=== PATIENT | male | born 1965 | race Caucasian/White ===

== ENCOUNTER 2025-02-10 08:27 | Outpatient (OUT) | payer BC, SELFPAY ==
--- OUTSIDE RECORDS SUMMARY | 2025-02-09 04:00 | XMS_ITS ---
Author Organization 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 No Xpzfqh9QoodxsslzsmwgvBgrapoom Problems Problem Type SNOMED Code ICD Code Onset Dates Problem Status W/U Status Risk Notes Problem COPD - Chronic obstr uctive pulmonary disease (33595290) COPD (chronic obstructive pulmonary disease) (J44.9) ActiveconfirmedProblemUrinary frequency (015782703)Urinary frequency (R35.0) ActiveconfirmedProblemElevated blood pressure reading without diagnosis of hypertension (637084413)Borderline hypertension (R03.0)Activeconfirmed Vital Signs Weight 227.4 lbs 02/09/2025 Height 67.5 in 02/09/2025 Blood pressure systolic 160 mm Hg 02/10/20 25 Blood pressure diastolic 98 mm Hg 025 BMI 35.09 kg/m2 02/09/2025 Encounters Encounter Location Date Provider Diagnosis [facility] [address] [place] [address] 02/09/2025 Gustavo Hoy Borderline hypertens ion R03.0 [...] Name Sig Start Date Stop Date Notes Trelegy Ellipta 100-62.5-25 MCG/ACT 1 puff Inhalation Once a day 02/09/2025 Cardura 2 MG1 tablet Orally Once a day; Duration: 30 day(s)02/09/2025Treatment Notes Assessment Notes Borderline hypertension follow up next w [place] for BP check Pending Test Test Name Order Date HEMOGLOBIN A1C (GLYCO) 02/09/2025 INSULIN, TOTAL 02/09/2025 LIPID PANEL (CHOL/TRIG/HDL/LDL) 02/10/20 25 UA DIP NONAUTO WO MICRO (21973) - IN OFF ICE 02/09/2025 STOOL OCCULT BLOOD 02/09/2025 THYROID PANEL (T4/TSH/FREE T3) PSA, SCREENING 02/09/2025 CT CHEST LOW DOSE (LDCT) 02/09/2025 CMP (COMP MET MENDEZ) w/eGFR CKD-EPI 2024 CBC WITH DIFF 02/09/2025 Progress Notes * Jaime JHADOB:1965 (59 yo M)Acc No.[id number]:02/09/2025 New Patient Patient: Jaime HAAS :?Wesley Avendano ([facility]), MDDOB:1965???Age: 59 Y???Sex:MaleDate:02/09/2025Phone:[phone]:[address] [place], [place] [address]-[id number] In:08:50 AM ESTCheck Out:09:30 AM EST Subjective: [...] (chronic obstru ctive pulmonary disease) Modified On:02/09/2025/U Status:uhqqeziiyX99.0Urinary frequency Modified On:02/09/2025U Status:kqvxxgbfzC64.0Borderline hypertension Modified On:02/09/2025 Status:confirmed * Medical History: [...] a day, 30 day(s), 30.?LAB: UA [place] CRUZO WO MICRO (74817) - IN OFFICE (Collection Date & Time [...] L ab: UA DIP NONAUTO WO MICRO (70914) - IN OFFICE (Collection Date & Time [...] (Check Out) true * Provider: Román Avendano ([facility])MD Date: 1 04/11/2024 Generated for Printing/Faxing/eTransmitting on:?02/10/2025 08:33 AM EST History and Physical Notes * HPI [...]
--- OUTSIDE RECORDS SUMMARY | 2025-02-10 08:33 | XMS_ITS | Clinical Summary ---
Author Organization [facility] Address [id number] [address] [place] [address] Care Team Providers Care Beer Cooler Name Role Phone Unavailable Primary Care Provider Unavailabl e Allergies No known active allergies Social History Tobacco UseTypesPacks/DayYears UsedDateSmoking Tobacco: Never AssessedChildcare AnswerDate EqskrxwqRgptmcnqhArpjnau71/12/2019EmploymentAnswerDate Recorded GcdylstjibSkitkxo15/12/2019Purpose - LifeAnswerDate RecordedPurpose and direction in duzcCxogvnk90/11/2021ex and Gender InformationValueDate Recorded Sex Assigned at BirthNot on fileLegal LzlCpeu9311/02/2014 11:27 AM EDTGender IdentityNot on fileSexual OrientationNot on file Plan of Treatment Health MaintenanceDue DateLast DoneCommentsDepression Rnvmnzylc41/12/1979Tobacco Lndpmcaut41/12/1979Adult BMI Aaqsfojvk87/12/1985DTaP,Tdap and Td Vaccines (1 - Tdap)1985Zoster (Shingles) Vaccine (1 of 2)2016Influenza Vaccine 11/28/2024 Medical Devices Not on file
--- OUTSIDE RECORDS SUMMARY | 2025-02-10 08:33 | XMS_ITS | Patient Health Record ---
Author Organization [facility] in [place] Address [address] [place] [address] Care Team Providers Care Thrill Performer Name Role Phone Gustavo Avendano Primary Care Provider [phone] Allergies No Known Allergies Results Component Value Reference Range Notes UA DIP NONAUTO WO MICRO (810 02) - IN OFFICE (Not yet reviewed by provider) Interpretation: Performing Lab: Notes/Report: COLOR dark yellow CLARITYclearGLUCOSENEGBILIRUBINNEGKETONENEGSPECIFIC GRAVITY1.652UMCKBMMOPG1.0 PROTEINPOSUROBILINOGENNEGNITRITENEGLEUKOCYTE ESTERASENEG Reason For Referral No Information Medications Medication SIG (Take, Route, Frequency, Duration) [...] alcohol in the p ast year? No Gmzngj4SrkphjsxzprvucAkorikid Problems Problem Type SNOMED Code ICD Code Onset Dates Problem Status W/U Status Risk Notes Problem COPD - Chronic obstr uctive pulmonary disease (93904088) COPD (chronic obstructive pulmonary disease) (J44.9) ActiveconfirmedProblemUrinary frequency (314999917)Urinary frequency (R35.0) ActiveconfirmedProblemElevated blood pressure reading without diagnosis of hypertension (175647422)Borderline hypertension (R03.0)Activeconfirmed Vital Signs Blood pressure diastolic 98 mm Hg 02/09/2025 Eswtit64.5 in02/09/2025lood pressure vlcqkivy593 mm Hg02/09/20258846Vabxme398.4 lbs 02/09/2025BMI35.09 kg/m202/09/2025 Encounters Encounter Location Date Provider Diagnosis [facility] [address] [place] [address] 02/09/2025 Gustavo Avendano Borderline hypertens ion R03.0 ; COPD (chronic [...] adult (ICD-10 - Z00.00) Plan Of Treatment Pending Test Test Name Order Date HEMOGLOBIN A1C (GLYCO) 02/09/2025 INSULIN, TOTAL 02/09/2025 LIPID PANEL (CHOL/TRIG/HDL/LDL) 02/10/20 25 UA DIP NONAUTO WO MICRO (94414) - IN OFF ICE 02/09/2025 STOOL OCCULT BLOOD 02/09/2025 THYROID PANEL (T4/TSH/FREE T3) 5 PSA, SCREENING 02/09/2025 CT CHEST LOW DOSE (LDCT) 02/09/2025 CMP (COMP MET MENDEZ) w/eGFR CKD-EPI 2024 CBC WITH DIFF 02/09/2025 Insurance Providers Payer Name Payer Address Payer Phone Subscriber Number Group Number Insured Name Patient Relationship to Insured Coverage Start Date Coverage End Date [employer] [address] [place] [address] [id number] Natividad Greer - patient is the insured Medical (General) History Surgical History Surgery Date(Month/Year) Testicle surgery Nose Surgery
[2025-02-10 08:58] LABS: Hematocrit 46.5 % (42.0-54.0); Hemoglobin 15.9 g/dL (14.0-18.0); Immature Granulocytes Abs Auto 0.04 10^3/uL (0.00-0.03); Immature Granulocytes Pct Auto 0.3 % (0.0-0.5); Lymphocytes Absolute Auto 2.4 10^3/uL (1.2-3.8); Mean Corpuscular HGB Conc 34.2 g/dL (29.9-35.2); Mean Corpuscular Hemoglobin 30.8 pg (25.9-34.0); Mean Corpuscular Volume 89.9 fL (80.0-94.0); Platelet Count 399 10^3/uL (150-450); Red Blood Count 5.17 10^6/uL (4.70-6.10); White Blood Count 12.4 10^3/uL (4.0-11.0)
[2025-02-10 09:39] LABS: Alanine Aminotransferase 26 U/L (16-63); Albumin Globulin Ratio 1.1; Albumin Level 4.0 g/dL (3.4-5.0); Alkaline Phosphatase 73 U/L (46-116); Anion Gap 14.5; Aspartate Amino Transferase 15 U/L (15-37); Blood Urea Nitrogen 19.0 mg/dL (7.0-18.0); Calcium 8.7 mg/dL (8.5-10.1); Carbon Dioxide 25.7 mmol/L (21.0-32.0); Chloride 104 mmol/L (98-107); Cholesterol 236 mg/dL (<=200); Estimated GFR (African America >60 (>=60 mL/min/1.73m^2); Estimated GFR (Non-African Ame >60 (>=60 mL/min/1.73m^2); Free T3 2.71 pg/mL (2.18-3.98); Globulin 3.5 g/dL; Glucose 96 mg/dL (74-106); HDL Cholesterol 38 mg/dL (40-60); Potassium 4.2 mmol/L (3.5-5.1); Sodium 140 mmol/L (136-145); Thyroid Stimulating Hormone 0.770 uIU/mL (0.358-3.740); Total Protein 7.5 g/dL (6.4-8.2); Triglycerides 137 mg/dL (<=150); VLDL CHOLESTEROL 27.4 mg/dL
== END 2025-02-10 08:28 | disposition home or self-care (01) ==
PROVIDERS: Family Provider Emergency Medicine Hospice and Palliative Medicine; PCP Family Medicine; Visit Provider Family Medicine
DX: Z00.00 Encounter for general adult medical examination without abnormal findings (principal); Z12.5 Encounter for screening for malignant neoplasm of prostate
CPT/HCPCS: 36415; 80053; 80061; 83036; 83525; 84436; 84443; 84481; 85025; G0103

== ENCOUNTER 2025-02-11 17:44 | Outpatient (REF) | payer BC, SELFPAY ==
--- OUTSIDE RECORDS SUMMARY | 2025-02-09 04:00 | XMS_ITS ---
Author Organization 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 Medications Medication SIG (Take, Route, Frequency, Duration) Notes Start Date End Date Status Trelegy Ellipta 100-62.5-25 MCG/ACT 1 puff Inhal ation Once a day 5ActiveCardura 2 MG1 tablet Orally Once a day; Duration: 30 day(s) 5Active Social History Tobacco Use: Social History Observation Description Date Details (start date - stop date) Current Smoker 01/28/1978 - NA Tobacco Control (Standard) Question Answer Notes Tobacco use: Current smoker When did you start smoking?01/28/1978How often do you smoke cigarettes?Every day How many cigarettes a day do you smoke?31 or moreHow soon after you wake up do you smoke your first cigarette?Within 5 minutesAre you interested in quitting? Not ready to quitAUDIT-C (Standard) Question Answer Notes Did you have a drink containing alcohol in the p ast year? No Sdnami1EtzctczyqyhuejEkdezfzj Problems Problem Type SNOMED Code ICD Code Onset Dates Problem Status W/U Status Risk Notes Problem COPD - Chronic obstr uctive pulmonary disease (02438625) COPD (chronic obstructive pulmonary disease) (J44.9) ActiveconfirmedProblemUrinary frequency (777447866)Urinary frequency (R35.0) ActiveconfirmedProblemElevated blood pressure reading without diagnosis of hypertension (696599818)Borderline hypertension (R03.0)Activeconfirmed Vital Signs Weight 227.4 lbs 02/09/2025 Height 67.5 in 02/09/2025 Blood pressure systolic 160 mm Hg 02/10/20 25 Blood pressure diastolic 98 mm Hg 025 BMI 35.09 kg/m2 02/09/2025 Encounters Encounter Location Date Provider Diagnosis [facility] [address] [place] [address] 02/09/2025 Gustavo Hoy Borderline hypertens ion R03.0 ; COPD (chronic obstructive pulmonary disease) J44.9 ; Urinary frequency R35.0 and Well adult Z00.00 Assessments Encounter Date Diagnosis (ICD Code) Assessment Notes Treatment Notes Treatment Clinical Notes Section Notes 02/09/2025 Borderline hypertension (ICD-10 - R03.0) follow up next week for BP check02/09/2025OPD (chronic obstructive pulmonary disease) (ICD-10 - J44.9)02/09/2025Urinary frequency (ICD-10 - R35.0)02/09/2025 Well adult (ICD-10 - Z00.00) Plan Of Treatment Medication Medication Name Sig Start Date Stop Date Notes Treledelbert Ellipta 100-62.5-25 MCG/ACT 1 puff Inhalation Once a day 02/09/2025 Cardura 2 MG1 tablet Orally Once a day; Duration: 30 day(s)02/09/2025Treatment Notes Assessment Notes Borderline hypertension follow up next w [place] for BP check Pending Test Test Name Order Date HEMOGLOBIN A1C (GLYCO) 02/09/2025 INSULIN, TOTAL 02/09/2025 LIPID PANEL (CHOL/TRIG/HDL/LDL) 02/10/20 25 STOOL OCCULT BLOOD 02/09/2025 THYROID PANEL (T4/TSH/FREE T3) PSA, SCREENING 02/09/2025 CT CHEST LOW DOSE (LDCT) 02/09/2025 CMP (COMP MET MENDEZ) w/eGFR CKD-EPI 2024 CBC WITH DIFF 02/09/2025 Progress Notes * Jaime JHADOB:1965 (59 yo M)Acc No.[id number]:02/09/2025 New Patient Patient: Jaime HAAS :?Wesley Avendano ([facility]), MDDOB:1965???Age: 59 Y???Sex:MaleDate:02/09/2025Phone:[phone]:[address] [place], [place] [id number] In:08:50 AM ESTCheck Out:09:30 AM EST Subjective: * Chief Complaints: * N P to EST-hasn't had PCP in about 30 years * HPI: ???General:?has dental issues Borderline HTN Freqent ureination - getting up 4-5 times a night. ???Depression Screening:?PHQ-2 (2015 Edition)?Little interest or pleasure in doing things? Not at all ?Feeling down, depressed, or hopeless??Not at all ?Total Score?0 * ROS: ???EENT:?hearing changes?denies.?visual changes?denies. non-healing mouth sores?denies.?swollen glands or neck lumps?denies.?hoarseness?denies.?sore throat?denies.?difficulty swallowing?denies.?nose bleeds?denies.?nasal congestion?denies.?ear ache?denies.?ear discharge denies.?ringing in ears?denies.?light sensitivity?denies.?eye pain?denies.?blurring?denies.?eye irritation?denies.?double vision?denies. vision loss?denies.?General/Constitutional:?Sweats:?Denies.?Fatigue?denies.?Sleep proble ms?denies.?Anorexia?denies.?Malaise?denies.?Weight loss?denies. Fatigue or Weakness?denies.?Fever or Chills?denies.?Cardiovascular:?Shortness of Breath w/lying flat?denies.?Lightheadedne ss/dizziness?denies.?Chest tightness/ heavy pressure?denies.?Swelling of legs, a nkles, or feet?denies.?Waking up with shortness of breath?denies.?Chest pain&#16 0;denies.?Palpitations?denies.?Weight gain?denies.?Respiratory:?Chronic or frequent cough?denies.?Coughing up blood&#1 60;denies.?Difficulty breathing?denies.?Productive cough?denies.?Snoring&#1 60;denies.?Shortness of breath that awakens from sleep (PND)?denies.?Chest pain? denies.?Sputum production?denies.?Wheezing?denies.?Musculoskeletal:?Joint pain?denies.?Joint Fluid?denies.?Backpain?denies.?Knee pain?denies.?Neck pain?denies.?Joint Stiffness?denies.?Muscle cramps?denies.?Weakness of muscles?denies.?Arthritis?denies.?Muscle aches?denies.?Pain in shoulder(s)?denies.?Swollen joints?denies.? * Active Problem List J44.9 COPD (chronic obstru ctive pulmonary disease) Modified On:02/09/2025/U Status:ywxcwxffcB43.0Urinary frequency Modified On:02/09/2025U Status:wcgarknliS09.0Borderline hypertension Modified On:02/09/2025 Status:confirmed * Medical History: * Surgical History: N ose Surgery Testicle surgery * Hospitalization/Major Diagno stic Procedure: D enies Past Hospitalization * Family History: F ather: . M other: . * Social History: ???Tobacco Use:?Tobacco Control (Standard)?Tobacco use:?Current smoker ?When did you start smoking??01/28/1978 ?How often do you smoke cigarettes??Every day ?How many cigarettes a day do you smoke??31 or more ?How soon after you wake up do you smoke your first cigarette??Within 5 minutes ?Are you interested in quitting??Not ready to quit ???Drug/Alcohol:?AUDIT-C (Standard)?Did you have a drink containing alcohol in the past year??No ?Points?0 ?Interpretation?Negative * Medications: N one * Allergies: N .K.D.A.no[Allergies Verified] Objective: * Vitals: W t:227.4lbs, Ht: 67.5 in, BP:160/98mm Hg, BMI:35.09Index, Ht-cm: 171.45 cm, Wt- k.15 kg. * Examination: ???Physical Exam: ?GENERAL:?well developed, well nourished, in no acute distress.?HEAD:?normocephalic/atraumatic.?EYES:?pupils equal, round and reactive to light, conjunctivae and sclerae normal.?EARS:?no deformity or lesion of external ear, canals and TM appear normal bilaterally, TM's intact, not inflamed with normal light reflex, hearing grossly normal to conversational speech.?NOSE:?no deformity, discharge, inflammation, or lesions. ?MOUTH:?mucous membranes moist, normal oropharynx and posterior pharynx without lesions or exudates, tongue normal, dentition normal.?NECK:?neck supple, no masses or palpable cervical nodes, trachea midline, thyroid without nodules, masses, tenderness, or enlargement.?CHEST:?no chest wall deformity, no chest wall tenderness. ?LUNGS:?normal respiratory effort and clear to auscultation, no wheezes, rales, or rhonchi, good air exchange.?CARDIO:?regular rate and rhythm, normal S1 and S2, nor murmur, rub, or gallop.?PULSES:?normal capillary refill.?ABDOMEN:?soft, non-distended, non-tender, no masses.?MUSCULOSKELETAL:?no deformity or scoliosis noted, normal range of motion, joints normal, no erythema, edema, effusion, or ecchymosis.?EXTREMITY:?no clubbing, cyanosis, edema, or deformity withnormal ROM in both upper and lower bilateral extremities.?NEUROLOGIC:?grossly normal.?SKIN:?no rashes, ulcerations, or suspicious lesions.?LYMPH NODES:?no cervical adenopathy, nodes normal.?MENTAL STATUS:?alert and oriented x3, normal mood and affect.? Assessment: * Assessment: 1.?Borderline hypertension - R03.0 (Primary)???2.?COPD (chronic obstructive pulmonary disease) - J44.9???3.?Urinary frequency - R35.0???4. Well adult - Z00.00??? Plan: * Treatment: Start Trelegy Ellipta Aerosol Powder Breath Activated, 100-62.5-25 MCG/ACT, 1 puff, Inhalation, Once a day, 1, Refills 11;?Start Cardura Tablet, 2 MG, 1 tablet, Orally, Once a day, 30 day(s), 30.?LAB: UA [place] NONAUTO WO MICRO (93328) - IN OFFICE (Collection Date & Time - 02/09/2025) ?Imaging: CT CHEST LOW DOSE (LDCT) Notes: follow up next week for BP check??2.?Well adult?LAB: HEMOGLOBIN A1C (GLYCO) ?LAB: INSULIN, TOTAL ?LAB: LIPID PANEL (CHOL/TRIG/HDL/LDL) ?LAB: STOOL OCCULT BLOOD ?LAB: THYROID PANEL (T4/TSH/FREE T3) ?LAB: PSA, SCREENING ?LAB: CMP (COMP MET MENDEZ) w/eGFR CKD-EPI ?LAB: CBC WITH DIFF * Labs: * L ab: UA DIP NONAUTO WO MICRO (42324) - IN OFFICE (Collection Date & Time - 02/09/2025) ?ValueReference Range?COLORdark yellow * C LARITY clear * G LUCOSE NEG * B ILIRUBIN NEG * K ETONE NEG * S PECIFIC GRAVITY 1.015 * B LOOD NEG * P H 6.0 * P ROTEIN POS * U ROBILINOGEN NEG * N ITRITE NEG * L EUKOCYTE ESTERASE NEG * Procedure Codes: 8 1002 URINALYSIS WO MICRO * Preventive Medicine: ??Screenings/Counseling:?BMI ACTION PLAN?Above Normal BMI Follow-up?Dietary management education, guidance, and counseling * * Sign off status: CompletedVisit Status:?CHK (Check Out) true * Provider: Román Avendano ([facility])MD Date: 04/11/2024 Generated for Printing/Faxing/eTransmitting on:?02/11/2025 05:51 PM EST History and Physical Notes * HPI (History of Present Illness) CategorySub-CategoryDetailNotesCategory NotesGeneral has dental issues Borderline HTN Freqent ureination - getting up 4-5 times a night Depression ScreeningPHQ-2 (2015 Edition)Little interest or pleasure in doing things?: Not at allFeeling down, depressed, or hopeless?: Not at allTotal Score: 0 Examination CategorySub-CategoryDetailNotesCategory NotesPhysical ExamGENERAL:well developed, well nourished, in no acute distressHEAD:normocephalic/atraumatic EYES:pupils equal, round and reactive to light, conjunctivae and sclerae normal EARS:no deformity or lesion of external ear, canals and TM appear normal bilaterally, TM's intact, not inflamed with normal light reflex, hearing grossly normal to conversational speechNOSE:no deformity, discharge, inflammation, or lesionsMOUTH:mucous membranes moist, normal oropharynx and posterior pharynx without lesions or exudates, tonguenormal, dentition normalNECK:neck supple, no masses or palpable cervical nodes, trachea midline, thyroid without nodules, masses, tenderness, or enlargementCHEST:no chest wall deformity, no chest wall tendernessLUNGS:normal respiratory effort and clear to auscultation, no wheezes, rales, or rhonchi, good air exchangeCARDIO:regular rate and rhythm, normal S1 and S2, nor murmur, rub, or gallopPULSES:normal capillary refillABDOMEN:soft, non-distended, non-tender, no massesRECTAL:MUSCULOSKELETAL:no deformity or scoliosis noted, normal range of motion, joints normal, no erythema, edema, effusion, or ecchymosisEXTREMITY:no clubbing, cyanosis, edema, or deformity with normal ROM in both upper and lower bilateral extremitiesNEUROLOGIC:grossly normalSKIN:no rashes, ulcerations, or suspicious lesionsLYMPH NODES:no cervical adenopathy, nodes normalMENTAL STATUS:alert and oriented x3, normal mood and affect
--- OUTSIDE RECORDS SUMMARY | 2025-02-11 17:50 | XMS_ITS | Clinical Summary ---
Author Organization [facility] Address [id number] [address] [place] [address] Care Team Providers Care Windmill Mechanic Name Role Phone Unavailable Primary Care Provider Unavailabl e Allergies No known active allergies Social History Tobacco UseTypesPacks/DayYears UsedDateSmoking Tobacco: Never AssessedChildcare AnswerDate BsnunshgSfflyniibXwmyski78/12/2019EmploymentAnswerDate Recorded MblhlausucDebthmz71/12/2019Purpose - LifeAnswerDate RecordedPurpose and direction in uerlUvpcdid36/11/2021ex and Gender InformationValueDate Recorded Sex Assigned at BirthNot on fileLegal QluRhie4811/02/2014 11:27 AM EDTGender IdentityNot on fileSexual OrientationNot on file Plan of Treatment Health MaintenanceDue DateLast DoneCommentsDepression Kzizclkqu84/12/1979Tobacco Rcvrtbbeg75/12/1979Adult BMI Qyjhaktbz10/12/1985DTaP,Tdap and Td Vaccines (1 - Tdap)1985Zoster (Shingles) Vaccine (1 of 2)2016Influenza Vaccine 11/28/2024 Medical Devices Not on file
--- OUTSIDE RECORDS SUMMARY | 2025-02-11 17:51 | XMS_ITS | Patient Health Record ---
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 Name Role Phone Gustavo Avendano Primary Care Provider Allergies No Known Allergies Results Component Value Reference Range Notes UA DIP NONAUTO WO MICRO (810 02) - IN OFFICE Reviewed date:02/11/2025 12:52:59 PM Interpretation: Performing Lab: Notes/Report: COLOR dark yellow CLARITYclearGLUCOSENEGBILIRUBINNEGKETONENEGSPECIFIC GRAVITY1.583HBDJYLXWIO5.0 PROTEINPOSUROBILINOGENNEGNITRITENEGLEUKOCYTE ESTERASENEGCBC AUTO DIFF Reviewed date:02/11/2025 12:52:59 PM Interpretation: Performing Lab: Notes/Report: [facility] ,White Blood Count12.44.0-11.0 10 3/uLRed Blood Count5.174.70-6.10 10 6/uL Azdbrkyqdv63.914.0-18.0 g/hTEaufzlsggi20.542.0-54.0 %Mean Corpuscular Ebcrhh97.9 80.0-94.0 fLMean Corpuscular Uofaijmiir51.825.9-34.0 pgMean Corpuscular HGB Conc 34.229.9-35.2 g/dLRed Cell Distribution Width13.811.0-15.0 %Platelet Fbphg027 150-450 10 3/uLMean Platelet Volume8.59.5-13.5 fLNeutrophils Percent Auto73.4 43.0-75.0 %Lymphocytes Percent Auto19.320.5-60.0 %Monocytes Percent Auto5.21.7- 12.0 %Eosinophils Percent Auto1.20.9-7.0 %Basophils Percent Auto0.60.2-2.0 % Immature Granulocytes Pct Auto0.30.0-0.5 %Neutrophils Absolute Auto9.11.4-6.5 10 3/uLLymphocytes Absolute Auto2.41.2-3.8 10 3/uLMonocytes Absolute Auto0.70.3-0.8 10 3/uLEosinophils Absolute Auto0.20.0-0.7 10 3/uLBasophils Absolute Auto0.10.0- 0.1 10 3/uLImmature Granulocytes Abs Auto0.040.00-0.03 10 3/uLPerforming Lab:see noteML - [facility] LBFREE T3 Reviewed date:02/11/2025 12:52:59 PM Interpretation: Performing Lab: Notes/Report: [facility] ,Free T32.712.18-3.98 pg/mLPerforming Lab:see noteML - [facility] LB GLYCOHEMOGLOBIN A1C Reviewed date:02/11/2025 12:52:59 PM Interpretation: Performing Lab: Notes/Report: [facility] ,Glycohemoglobin A1C5.34.5-6.2 % ADA RECOMMENDED LIMIT 4.0 - 6.0 ADA THERAPEUTIC TARGET < 7.0 ACTION SUGGESTED > 7.0 Estimated Average Fwwwbyz775Eztovtliza Lab:see noteML - [facility] LB LIPID PROFILE Reviewed date:02/11/2025 12:52:59 PM Interpretation: Performing Lab: Notes/Report: [facility] ,Lawuywskowbvd785<=150 mg/oSJdyrlenaujk583<=200 mg/dLHDL Gwrwtvnoqbz9278-91 mg/dL > or =60 mg/dl - LOW CARDIOVASCULAR RISK <40 mg/dl - HIGH CARDIOVASCULAR RISK LDL Cholesterol Zaqhhwpbwg252.0 <100 mg/dl OPTIMAL 100-129 mg/dl NEAR OR ABOVE OPTIMAL 130-159 mg/dl BORDERLINE HIGH 160-189 mg/dl HIGH >190 mg/dl VERY HIGH VLDL LNMQVFVUOZU54.4Chol HDL Ratio6.2 3.3 - 4.4 LOW RISK 4.4 - 7.1 AVERAGE RISK 7.1 - 11.0 MODERATE RISK >11.0 HIGH RISK Performing Lab:see note - [facility] LBPROF 14(COMP METB) Reviewed date:02/11/2025 12:52:59 PM Interpretation: Performing Lab: Notes/Report: [facility] ,Noeqpk166942-060 mmol/LPotassium4.23.5-5.1 mmol/IYzusewqk07404-960 mmol/LCarbon Drmlyff47.721.0-32.0 mmol/LAnion Gap14.0Xjjqvfk7363-744 mg/dLBlood Urea Nitrogen 19.07.0-18.0 mg/dLCreatinine0.880.70-1.30 mg/dLEstimated GFR ( Linda>60 >=60 mL/min/1.73m 2Estimated GFR (Non- Shaniqua>60>=60 mL/min/1.73m 2BUN Creatinine Ratio21.4Cqdxawi1.78.5-10.1 mg/dLBilirubin Total0.60.2-1.0 mg/dL Aspartate Amino Inbupzvkqax4669-47 U/LAlanine Wxzkcroguhecbrao9694-91 U/L Alkaline Ptaoqbfruje4499-218 U/LTotal Protein7.56.4-8.2 g/dLAlbumin Level4.03.4- 5.0 g/dLGlobulin3.5Albumin Globulin Ratio1.1Performing Lab:see note - [facility] LBPSA SCREENING Reviewed date:02/11/2025 12:52:59 PM Interpretation: Performing Lab: Notes/Report: [facility] ,Prostate Specific Antigen Scrn1.28<=4.00 ng/mLPerforming Lab:see note - [facility] LBT4 Reviewed date:02/11/2025 12:52:59 PM Interpretation: Performing Lab: Notes/Report: [facility] ,T4 Thyroxine7.804.50-12.10 ug/dLPerforming Lab:[facility] LBT[facility] Reviewed date:02/11/2025 12:52:59 PM Interpretation: Performing Lab: Notes/Report: [facility] ,Thyroid Stimulating Hormone0.7700.358-3.740 uIU/mLPerforming Lab:see note - [facility] LB Reason For Referral No Information Medications Medication SIG (Take, Route, Frequency, Duration) Notes Start Date End Date Status Trelaine Ellipta 100-62.5-25 MCG/ACT 1 puff Inhal ation [...] alcohol in the p ast year? No Haodio3KyssnxigzruocgSmfsuimb Problems Problem Type SNOMED Code ICD Code Onset Dates Problem Status W/U Status Risk Notes Problem COPD - Chronic obstr uctive pulmonary disease (00528410) COPD (chronic obstructive pulmonary disease) (J44.9) ActiveconfirmedProblemUrinary frequency (595428694)Urinary frequency (R35.0) ActiveconfirmedProblemElevated blood pressure reading without diagnosis of hypertension (728346101)Borderline hypertension (R03.0)Activeconfirmed Vital Signs Blood pressure diastolic 98 mm Hg 02/09/2025 Hazzhs70.5 in02/09/2025lood pressure mm Hg02/09/20258136Qfoaor584.4 lbs 02/09/2025BMI35.09 kg/m202/09/2025 Encounters Encounter Location Date Provider Diagnosis [facility] [address] [place] [address] 02/09/2025 Gustavo Avendano Borderline hypertens ion R03.0 ; COPD (chronic obstructive pulmonary disease) J44.9 ; Urinary frequency R35.0 and Well adult Z00.00 [facility] [address] [place] [address] 02/11/2025 Gustavo Avendano Assessments Encounter Date Diagnosis (ICD Code) Assessment [...] Insured Coverage Start Date Coverage End Date [employer] [address] [place] [address] [id number] Natividad Greer - patient is the insured Medical (General) History Surgical History Surgery Date(Month/Year) Testicle surgery Nose Surgery
== END 2025-02-11 17:45 | disposition home or self-care (01) ==
LOC: LAB 17:44
PROVIDERS: Family Provider Emergency Medicine Hospice and Palliative Medicine; PCP Family Medicine; Visit Provider Family Medicine
DX: Z00.00 Encounter for general adult medical examination without abnormal findings (principal); Z12.5 Encounter for screening for malignant neoplasm of prostate
CPT/HCPCS: G0328

== ENCOUNTER 2025-02-21 08:31 | Outpatient (OUT) | payer BC, SELFPAY ==
--- NOTE | 2025-02-21 08:35 | CT_ITS ---
The [address] [address] Patient Name: LAKE JHA II MRN: [id number] date: 1965 Sex: M Assigned Patient Location: CT Current Patient Location: CT Accession/Order Number: [id number] Exam Date: 02/21/2025 08:53 Report Date: 02/21/2025 09:56 At the request of: SCOTT GANT MD Procedure: CT lung screening low-dose LOW-DOSE SCREENING CHEST CT WITHOUT CONTRAST COMPARISON: None CLINICAL DATA: Current smoker with 47 pack year history of tobacco use Spiral axial unenhanced low-dose images were obtained through the chest. Images were reviewed using both narrow and wide window settings. This CT exam was performed using one or more following dose reduction techniques: Automated exposure control, adjustment of the mA and/or kV according to patient size, or use of iterative reconstruction technique. The heart is normal size. No pericardial effusion is present. There is minor coronary artery disease. The ascending aorta is ectatic with diameter of approximately 4 cm. A small amount of plaque is present at the aortic arch. There are small nonpathologic mediastinal lymph nodes. There is slight levoscoliotic curvature There is obstructive lung disease with airspace lucencies and subpleural blebs. Minor scarring is seen at the lung apices. There is also minor atelectasis and/or scarring at the lung bases, greater on the right no additional consolidation, pleural effusion or pneumothorax is seen. A few tiny nodular densities are seen on the right measuring up to 3 mm in size. Limited imaging through the upper abdomen shows no contributory findings. CT/CT lung screening low-dose IMPRESSION: OBSTRUCTIVE LUNG DISEASE WITH SCARRING AND ATELECTASIS. TINY RIGHT PULMONARY NODULES. Lung RADS category 2 - benign twelve-month low-dose CT follow-up suggested Impression dictated by: Lucy Salazar M.D. 02/21/2025 9:56 AM Dictation Location: [place] [address] Electronically authenticated by: [id number] Y Date: 02/21/2025 09:56
--- OUTSIDE RECORDS SUMMARY | 2025-02-21 08:35 | XMS_ITS | Clinical Summary ---
Author Organization [employer] Address [id number] [address] [place] [address] Care Team Providers Care Inspector Floor Name Role Phone Unavailable Primary Care Provider Unavailabl e Allergies No known active allergies Social History Tobacco UseTypesPacks/DayYears UsedDateSmoking Tobacco: Never AssessedChildcare AnswerDate LegsbqfsLjdjovxhrWyabbao18/12/2019EmploymentAnswerDate Recorded JngndlfaqqJswuekw09/12/2019Purpose - LifeAnswerDate RecordedPurpose and direction in iuwlRcwxhhy31/11/2021ex and Gender InformationValueDate Recorded Sex Assigned at BirthNot on fileLegal IvvJkva3711/02/2014 11:27 AM EDTGender IdentityNot on fileSexual OrientationNot on file Plan of Treatment Health MaintenanceDue DateLast DoneCommentsDepression Gfsfjzoyg02/12/1979Tobacco Ppaimvgeq82/12/1979Adult BMI Mkkdnqhym24/12/1985DTaP,Tdap and Td Vaccines (1 - Tdap)1985Zoster (Shingles) Vaccine (1 of 2)2016Influenza Vaccine 11/28/2024 Medical Devices Not on file
== END 2025-02-21 08:32 | disposition home or self-care (01) ==
LOC: CT 08:31
PROVIDERS: Family Provider Emergency Medicine Hospice and Palliative Medicine; PCP Family Medicine; Visit Provider Family Medicine
DX: R91.8 Other nonspecific abnormal finding of lung field (principal); F17.210 Nicotine dependence, cigarettes, uncomplicated; R03.0 Elevated blood-pressure reading, without diagnosis of hypertension; J44.9 Chronic obstructive pulmonary disease, unspecified
CPT/HCPCS: 71271